=== PATIENT | male | born 1965 | race Caucasian/White ===

== ENCOUNTER 2018-09-23 20:45 | Emergency (ER) | payer SELFPAY ==
[~2018-09-23] VITALS: Ht 180.3 cm; Wt 111.1 kg
[2018-09-23 21:24] VITALS: BP 121/88
[2018-09-23] MEDS ORDERED: HYDROcodone-ACET 10/325MG TAB PO ONE (21:45)
== END 2018-09-23 22:21 | disposition home or self-care (01) ==
LOC: ER 20:45
DX: S82.144A Nondisplaced bicondylar fracture of right tibia, initial encounter for closed fracture (principal); M25.431 Effusion, right wrist; W19.XXXA Unspecified fall, initial encounter; Y93.89 Activity, other specified; Y99.8 Other external cause status; Y92.89 Other specified places as the place of occurrence of the external cause
CPT/HCPCS: 29125; 29505; 73110; 73562